=== PATIENT | male | born 1960 | race Caucasian/White ===

== ENCOUNTER 2017-08-21 19:13 | Emergency (ER) | payer BC ==
[~2017-08-21] VITALS: Ht 180.3 cm; Wt 109.7 kg
[~2017-08-21 19:13] MED LIST: ATORVASTATIN CA80 MG PO; AUGMENTIN875 MG PO; BUPROPION HCL150 M2 PO; CLONAZEPAM0.5 MG PO; ESCITALOPRAM OX10 MG PO; ESCITALOPRAM OX20 MG PO; FENOFIBRATE145 M1 PO; LISINOPRIL10 MG PO; METFORMIN HCL500 MG PO; METRONIDAZOLE500 MG PO; NEXIUM40 MG PO; NITROSTAT0.4 MG SL; PIOGLITAZONE HC15 MG PO; PROPRANOLOL HCL60 MG PO; TROKENDI XR200 MG PO; ZONISAMIDE100 MG PO
[2017-08-21 21:11] LABS: BASOPHIL COUNT 0.1 K/uL (0-0.1); EOSINOPHIL (%) 2.9 % (0-5); EOSINOPHIL COUNT 0.2 K/uL (0-0.3); HEMATOCRIT 42.4 % (38.0-50.0); HEMOGLOBIN 14.5 G/DL (12.5-16.6); IMMATURE GRANULOCYTE (%) 0.7 % (0.0-0.7); LYMPHOCYTE COUNT 2.5 K/uL (1.0-2.8); MCH 29.8 PG (29.0-34.0); MCHC 34.2 G/DL (30.0-36.0); MCV 87.2 FL (86-99); MONOCYTE (%) 7.1 % (3-12); MONOCYTE COUNT 0.4 K/uL (0-0.8); NEUTROPHIL (%) 45.3 % (45-76); NEUTROPHIL COUNT 2.7 K/uL (1.8-6.4); PLATELET COUNT 221 K/uL (156-360); RBC DIS.WIDTH-CV 13.2 % (11.8-14.6); RBC DIS.WIDTH-SD 42.4 % (39-53); RED BLOOD COUNT 4.86 M/uL (4.00-5.50); WHITE BLOOD COUNT 5.9 K/uL (4.1-10.2)
[2017-08-21 21:20] LABS: ALBUMIN 4.1 g/dL (3.2-4.8); CHLORIDE 111 mEq/L (99-109); POTASSIUM 3.6 mEq/L (3.7-5.4); SODIUM 139 mEq/L (136-147)
[2017-08-21 21:23] LABS: GLUCOSE 107 mg/dL (70-99); TOTAL PROTEIN 7.1 g/dL (6.4-8.3)
[2017-08-21 21:25] LABS: TOTAL BILIRUBIN 0.3 mg/dL (0.0-1.0)
[2017-08-21 21:26] LABS: ALKALINE PHOSPHATASE 64 IU/L (3-129); CREATININE 1.2 mg/dL (0.6-1.3); GFR ESTIMATE (CALCULATED) > 59 mL/min/ (58.99-99999)
[2017-08-21 21:27] LABS: UREA NITROGEN (BUN) 22 mg/dL (9-23)
[2017-08-21 21:28] LABS: AST (GOT) 20 IU/L (2-34)
[2017-08-21 21:29] LABS: ALT (GPT) 28 IU/L (3-49)
[2017-08-21 21:32] LABS: TROP-I INTERPRETATION NEGATIVE; TROPONIN-I < 0.01 ng/mL (0.0-0.30)
[2017-08-21 22:13] LABS: C-REACTIVE PROTEIN 1.5 MG/L (0-10); DIRECT BILIRUBIN 0.1 mg/dL (0.0-0.3); ERTH.SED.RATE 6 MM/HR (0-20); HDL CHOLESTEROL 39 MG/DL (Desirable>=40); LDL CHOLESTEROL 94 mg/dL (Desirable<100); NON-HDL CHOLESTEROL 125 mg/dL (Desirable<160); TOTAL CHOLESTEROL 164 mg/dL (Desirable<200); TRIGLYCERIDES 154 MG/DL (Normal: <150)
[2017-08-21 23:30] LABS: APPEARANCE CLEAR ((CLEAR)); BILIRUBIN NEGATIVE; BLOOD NEGATIVE; COLOR YELLOW ((YELLOW)); GLUCOSE (STRIP) NEGATIVE; KETONES NEGATIVE; LEUKOCYTES NEGATIVE; NITRITE NEGATIVE; PROTEIN (STRIP) NEGATIVE; UCUL ADDED? NO; UROBILINOGEN 0.2 MG/DL (0.2-1.0)
[2017-08-22 00:23] LABS: PTT 28.3 SEC (25-37)
[2017-08-22 01:38] VITALS: BP 135/80
== END 2017-08-22 01:39 | disposition home or self-care (01) ==
LOC: EME 19:13
PROVIDERS: Emergency Medicine
DX: R21 Rash and other nonspecific skin eruption (principal); R23.3 Spontaneous ecchymoses; R42 Dizziness and giddiness; R11.2 Nausea with vomiting, unspecified; E11.9 Type 2 diabetes mellitus without complications; Z79.84 Long term (current) use of oral hypoglycemic drugs
CPT/HCPCS: 70450; 80053; 80061; 80175 90; 81003; 82248; 83036; 84484; 85025; 85610; 85652; 85730; 86140; 93005; 99281; 99284; J7030